=== PATIENT | female | born 1985 | race Caucasian/White ===

== ENCOUNTER 2017-07-02 18:14 | Emergency (ER) | payer MEDICAID, OTHER ==
[2017-07-02 19:18] VITALS: BP 122/73
[2017-07-02] MEDS ORDERED: NS 0.9% 1000 ML* 2,000 ML IV ONE (19:25)
--- NOTE | 2017-07-02 19:57 | RAD ---
INDICATION: Syncope COMPARISON: None TECHNIQUE: An AP portable view obtained at 1947 hours is submitted. FINDINGS: Bones/Soft Tissues: There are no acute bony findings. Cardiomediastinal: The cardiomediastinal silhouette is normal. Lungs: There are no infiltrates. Pleura: There are no pleural effusions. Other: None IMPRESSION: NO ACTIVE DISEASE.
[2017-07-02 20:06] LABS: Hematocrit 41 % (35-47); Hemoglobin 13.7 g/dl (12.0-16.0); Mean Corpuscular HGB Conc 33 g/dl (31-36); Mean Corpuscular Hemoglobin 30 pg (27-31); Mean Corpuscular Volume 91 fL (80-97); Mean Platelet Volume 7 um3 (7.4-10.4); Red Blood Count 4.53 10^6/ul (4.0-5.4); Red Cell Distribution Width 14 % (10.5-15); White Blood Count 11.8 10^3/ul (3.5-10.8)
--- NOTE | 2017-07-02 20:15 | RAD ---
INDICATION: Syncope COMPARISON: None TECHNIQUE: Noncontrast axial source images were acquired from the skull base to the vertex. FINDINGS: Ventricles/sulci: The ventricles and cisterns are normal in size and configuration for age. Brain parenchyma: There is no focal parenchymal finding, evidence of intracranial mass, or intracranial mass effect. Intracranial hemorrhage:None. Extra-axial spaces: There are no abnormal extra axial fluid collections or evidence of extra-axial mass. Calvarium: There is no calvarial fracture or other calvarial abnormality. Scalp: There is no evidence of scalp or extracalvarial soft tissue abnormality. Paranasal sinuses/mastoid: The paranasal sinuses and mastoid air cells are clear. Other: None. IMPRESSION: No acute intracranial findings
[2017-07-02 20:18] LABS: ALT 21 U/L (7-52); AST 13 U/L (13-39); Albumin 4.2 g/dL (3.2-5.2); Alkaline Phosphatase 60 U/L (34-104); Anion Gap 6 mmol/L (2-11); BUN/Creatinine Ratio 14.9 (8-20); Blood Urea Nitrogen 11 mg/dL (6-24); C Reactive Protein 10.86 mg/L (< 5.00); CO2 Carbon Dioxide 24 mmol/L (22-32); Calcium 9.4 mg/dL (8.6-10.3); Chloride 108 mmol/L (101-111); Creatine Kinase 42 U/L (10-223); Globulin 3.3 g/dL (2-4); Glucose 83 mg/dL (70-100); Lipase 36 U/L (11.0-82.0); Potassium 3.8 mmol/L (3.5-5.0); Sodium 138 mmol/L (133-145); Total Protein 7.5 g/dL (6.4-8.9)
[2017-07-02 20:36] LABS: TSH (Thyroid Stimulating Horm) 2.39 mcIU/mL (0.34-5.60)
--- NOTE | 2017-07-03 00:38 | ED ---
Steve Rodriguez Nikita, scribed for Isaac North MD on 07/02/17 at 1934 . Syncope/Near Syncope - HPI Summary HPI Summary: This patient is a 31 year old F presenting to ED with a chief complaint of syncope since 1630. Pt had episode after playing with her kids outside. Pt reports feeling dizzy, so she went inside the house where she remembers falling , hitting the wall, and then losing consciousness. The patient rates the pain 0/ 10 in severity. Symptoms aggravated by nothing. Symptoms alleviated by nothing. Patient reports LOC, dizziness/light-headed (spotty vision), nausea, fever, fatigue and increased sleeping (per the sister). Patient denies palpitations, CP , SOB, overexertion, PALAFOX, and chills. Pt has a Hx of brain tumors (only 1 in the past). She currently has one (found 1 year ago). Pt reports her tumor had ruptured a while ago and since then she hasnt had any syncopal episodes. Then, 1 month ago, the pt was in the bathroom where she lost consciousness. Pt is worried that this syncopal episode is related to her brain tumor. Pts oncologist is Dr. Caceres. - History Of Current Complaint Chief Complaint: EDSyncope Time Seen by Provider: 07/02/17 19:09 Hx Obtained From: Patient Onset/Duration: Sudden Onset, Lasting Hours - approximately 3 hours ago, Resolved Timing: Frequency Of Episodes - had previous episode about 1 month ago Context: Loss Of Consciousness Activity At Onset: Exertion - playing with kids (exertion is not unusual) Aggravating Factor(s): Nothing Alleviating Factor(s): Nothing Associated Signs And Symptoms: Other - Patient reports LOC, dizziness/light- headed (spotty vision), nausea, fever, fatigue and increased sleeping (per the sister). Patient denies palpitations, CP, SOB, overexertion, PALAFOX, and chills. 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 Negative: Chills Negative: Palpitations, Chest Pain Negative: Shortness Of Breath Positive: Nausea Neurological: Other - dizziness/light-headed ("spotty vision"), increased sleeping (per the sister) Positive: Syncope. Negative: Headache All Other Systems Reviewed And Are Negative: Yes Physical Exam - Summary Physical Exam Summary: General: well-appearing, no pain distress Skin: warm, color reflects adequate perfusion, dry Head: normal Eyes: EOMI, VARSHA ENT: normal Neck: supple, nontender Respiratory: CTA, breath sounds present Cardiovascular: RRR Abdomen: soft, nontender Bowel: present Musculoskeletal: normal, strength/ROM intact Neurological: normal, sensory/motor intact, A&O x3 Psychological: affect/mood appropriate GCS: 15 Triage Information Reviewed: Yes Vital Signs On Initial Exam: Initial Vitals Temp Pulse Resp BP Pulse Ox 97.5 F 94 20 133/75 100 07/02/17 18:29 07/02/17 18:29 07/02/17 18:29 07/02/17 18:29 07/02/17 18:29 Vital Signs Reviewed: Yes - Tyrese Coma Scale Coma Scale Total: 15 Diagnostics - Vital Signs Vital Signs Temp Pulse Resp BP Pulse Ox 07/02/17 19:10 99.0 F 123 18 122/73 100 07/02/17 18:29 97.5 F 94 20 133/75 100 - Laboratory Lab Results: Lab Results 07/02/17 07/02/17 07/02/17 Range/Units 19:53 19:53 19:53 WBC 11.8 H (3.5-10.8) 10^3/ul RBC 4.53 (4.0-5.4) 10^6/ul Hgb 13.7 (12.0-16.0) g/dl Hct 41 (35-47) % MCV 91 (80-97) fL MCH 30 (27-31) pg MCHC 33 (31-36) g/dl RDW 14 (10.5-15) % Plt Count 336 (150-450) 10^3/ul MPV 7 L (7.4-10.4) um3 Neut % (Auto) 63.6 (38-83) % Lymph % (Auto) 26.6 (25-47) % [place] % (Auto) 7.6 (1-9) % Eos % (Auto) 1.2 (0-6) % Baso % (Auto) 1.0 (0-2) % Absolute Neuts (auto) 7.5 (1.5-7.7) 10^3/ul Absolute Lymphs (auto) 3.1 (1.0-4.8) 10^3/ul Absolute Monos (auto) 0.9 H (0-0.8) 10^3/ul Absolute Eos (auto) 0.1 (0-0.6) 10^3/ul Absolute Basos (auto) 0.1 (0-0.2) 10^3/ul Absolute Nucleated RBC 0 10^3/ul Nucleated RBC % 0 INR (Anticoag Therapy) 0.86 L (0.89-1.11) APTT 30.5 (26.0-36.3) seconds Sodium 138 (133-145) mmol/L Potassium 3.8 (3.5-5.0) mmol/L Chloride 108 (101-111) mmol/L Carbon Dioxide 24 (22-32) mmol/L Anion Gap 6 (2-11) mmol/L BUN 11 (6-24) mg/dL Creatinine 0.74 (0.51-0.95) mg/dL Est GFR ( Amer) 117.0 (>60) Est GFR (Non-Af Amer) 91.0 (>60) BUN/Creatinine Ratio 14.9 (8-20) Glucose 83 (70-100) mg/dL Lactic Acid (0.5-2.0) mmol/L Calcium 9.4 (8.6-10.3) mg/dL Magnesium 2.0 (1.9-2.7) mg/dL Total Bilirubin 0.30 (0.2-1.0) mg/dL AST 13 (13-39) U/L ALT 21 (7-52) U/L Alkaline Phosphatase 60 (34-104) U/L Total Creatine Kinase 42 (10-223) U/L CK-MB (CK-2) 0.8 (0.6-6.3) ng/mL Troponin I 0.00 (<0.04) ng/mL C-Reactive Protein 10.86 H (< 5.00) mg/L Total Protein 7.5 (6.4-8.9) g/dL Albumin 4.2 (3.2-5.2) g/dL Globulin 3.3 (2-4) g/dL Albumin/Globulin Ratio 1.3 (1-3) Lipase 36 (11.0-82.0) U/L TSH 2.39 (0.34-5.60) mcIU/mL Beta HCG, Quant < 0.60 mIU/mL 07/02/17 Range/Units 19:53 WBC (3.5-10.8) 10^3/ul RBC (4.0-5.4) 10^6/ul Hgb (12.0-16.0) g/dl Hct (35-47) % MCV (80-97) fL MCH (27-31) pg MCHC (31-36) g/dl RDW (10.5-15) % Plt Count (150-450) 10^3/ul MPV (7.4-10.4) um3 Neut % (Auto) (38-83) % Lymph % (Auto) (25-47) % [place] % (Auto) (1-9) % Eos % (Auto) (0-6) % Baso % (Auto) (0-2) % Absolute Neuts (auto) (1.5-7.7) 10^3/ul Absolute Lymphs (auto) (1.0-4.8) 10^3/ul Absolute Monos (auto) (0-0.8) 10^3/ul Absolute Eos (auto) (0-0.6) 10^3/ul Absolute Basos (auto) (0-0.2) 10^3/ul Absolute Nucleated RBC 10^3/ul Nucleated RBC % INR (Anticoag Therapy) (0.89-1.11) APTT (26.0-36.3) seconds Sodium (133-145) mmol/L Potassium (3.5-5.0) mmol/L Chloride (101-111) mmol/L Carbon Dioxide (22-32) mmol/L Anion Gap (2-11) mmol/L BUN (6-24) mg/dL Creatinine (0.51-0.95) mg/dL Est GFR ( Amer) (>60) Est GFR (Non-Af Amer) (>60) BUN/Creatinine Ratio (8-20) Glucose (70-100) mg/dL Lactic Acid 1.1 (0.5-2.0) mmol/L Calcium (8.6-10.3) mg/dL Magnesium (1.9-2.7) mg/dL Total Bilirubin (0.2-1.0) mg/dL AST (13-39) U/L ALT (7-52) U/L Alkaline Phosphatase (34-104) U/L Total Creatine Kinase (10-223) U/L CK-MB (CK-2) (0.6-6.3) ng/mL Troponin I (<0.04) ng/mL C-Reactive Protein (< 5.00) mg/L Total Protein (6.4-8.9) g/dL Albumin (3.2-5.2) g/dL Globulin (2-4) g/dL Albumin/Globulin Ratio (1-3) Lipase (11.0-82.0) U/L TSH (0.34-5.60) mcIU/mL Beta HCG, Quant mIU/mL Result Diagrams: 07/02/17 19:53 07/02/17 19:53 Lab Statement: Any lab studies that have been ordered have been reviewed, and results considered in the medical decision making process. - Radiology CXR Radiology Interpretation Completed By: Radiologist - No active disease. ED physician has reviewed this radiology report and agrees. - CT Brain CT Interpretation Completed By: Radiologist - No acute intracranial findings. ED physician has reviewed this radiology report and agrees. - EKG 1842 Cardiac Rate: NL - 94 bpm EKG Rhythm: Sinus Rhythm ST Segment: Normal EKG Interpretation: No activity Re-Evaluation - Re-Evaluation First Eval Re-Evaluation Time: 20:51 Comment: Discussed with pt CXR and CT Brain findings. Course/Dx Course Of Treatment: DISCUSSED RESULTS WITH PATIENT/FAMILY. PATIENT FEELS WELL IN ED. WILL F/U PMD. Assessment/Plan: This patient is a 31 year old F presenting to ED with a chief complaint of syncope since 1630. Pt had episode after playing with her kids outside. Pt reports feeling dizzy, so she went inside the house where she remembers falling, hitting the wall, and then losing consciousness. The patient rates the pain 0/10 in severity. Symptoms aggravated by nothing. Symptoms alleviated by nothing. Patient reports LOC, dizziness/light-headed (spotty vision), nausea, fever, fatigue and increased sleeping (per the sister). Patient denies palpitations, CP, SOB, overexertion, PALAFOX, and chills. Pt has a Hx of brain tumors (only 1 in the past). She currently has one (found 1 year ago). Pt reports her tumor had ruptured a while ago and since then she hasnt had any syncopal episodes. Then, 1 month ago, the pt was in the bathroom where she lost consciousness. CT brain reveals no acute intracranial findings. GCS is 15. CXR reveals no acute disease. ED physician has reviewed these radiology reports and agrees. EKG reveals NSR, normal ST, and no activity. In the ED course, pt was given fluids. Pt will be discharged with instructions to follow up with her PCP. Pt is agreeable with this plan. Medications reviewed. - Diagnoses Provider Diagnoses: Syncope Discharge - Discharge Plan Condition: Stable Disposition: HOME Patient Education Materials: Syncope (ED) Referrals: John Nelson MD [Primary Care Provider] - Additional Instructions: FOLLOW UP WITH YOUR DOCTOR. RETURN TO THE EMERGENCY DEPARTMENT FOR ANY WORSENING OF YOUR CONDITION; WEAKNESS , YOU FEEL LIKE PASSING OUT, YOU FEEL ILL, CHEST PAIN OR QUESTIONS OR CONCERNS. The documentation as recorded by the Steve carver Nikita accurately reflects the service I personally performed and the decisions made by me, Isaac North MD.
== END 2017-07-02 21:05 | disposition home or self-care (01) ==
LOC: ED 18:14
DX: R55 Syncope and collapse (principal); R42 Dizziness and giddiness; R50.9 Fever, unspecified; R53.83 Other fatigue
CPT/HCPCS: 36415; 70450; 71010; 80053; 82550; 82553; 83605; 83690; 83735; 84443; 84484; 84702; 85025; 85610; 85730; 86140; 93005; 96360; 99283

== ENCOUNTER 2018-09-24 10:43 | Emergency (ER) | payer OTHER ==
--- NOTE | 2018-09-24 10:58 | ED ---
Adult Trauma - HPI Summary HPI Summary: This pt is a 33 y/o female presenting to [facility] via EMS for an unwitnessed fall today s/p slipping. Per EMS pt left her house at around 08:30 and had walked a couple hundred feet from her house when she fell. Pt did have LOC and head strike. Pt did not call 911 until she regained consciousness on the side of the road a little before 10:00. Pt currently c/o headache, lower back pain, and neck pain. Additionally she states her feet are cold and has numbness and tingling, blurry vision (which is no usual), nausea. Denies abd pain, chest pain , SOB, diplopia, vomiting. LMP: 3 weeks ago. Pt denies risk for as she has a tuba ligation. PMHx includes brain tumor (shrunk with meds 3 years ago in [place]), ovarian cyst. Her last brain CT was about 1 year ago when she also fell and had LOC. - History of Current Complaint Stated Complaint: FALL Time Seen by Provider: 09/24/18 10:45 Hx Obtained From: Patient Mechanism of Injury: Fall Loss of Consciousness: prolonged (minutes) Restraints: None Onset/Duration: Started Hours Ago Onset of Pain: Hours Current Severity: Moderate Pain Scale Used: 0-10 Numeric Location: Head, Neck, Back - lower Character: Aching Aggravating Factor(s): Nothing Alleviating Factor(s): Nothing Associated Signs & Symptoms: Positive: Nausea/Vomiting - POS: nausea. NEG: vomiting, Loss of Consciousness, Numbness/Weakness - numbness and tingling in LE from cold, Other: - POS: blurry vision. NEG: diplopia, vomiting. 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 Negative: Diplopia Negative: Chest Pain Negative: Shortness Of Breath Positive: Nausea. Negative: Abdominal Pain, Vomiting Musculoskeletal: Other - POS: lower back pain, neck pain Positive: Headache, Paresthesia - in LE, Numbness - in LE All Other Systems Reviewed And Are Negative: Yes Physical Exam - Summary Physical Exam Summary: VITAL SIGNS: Reviewed. GENERAL: Patient is a well-developed and nourished female who is lying comfortable in the stretcher. Patient is not in any acute respiratory distress. HEAD AND FACE: No signs of trauma. No ecchymosis, hematomas or skull depressions. No sinus tenderness. EYES: PERRLA, EOMI x 2, No injected conjunctiva, no nystagmus. EARS: Hearing grossly intact. Ear canals and tympanic membranes are within normal limits. MOUTH: Oropharynx within normal limits. NECK: Supple, trachea is midline, no adenopathy, no JVD, no carotid bruit. C- spine tenderness. Pt with C-collar. CHEST: Symmetric, no tenderness at palpation LUNGS: Clear to auscultation bilaterally. No wheezing or crackles. CVS: Regular rate and rhythm, S1 and S2 present, no murmurs or gallops appreciated. ABDOMEN: Soft, non-tender. No signs of distention. No rebound, no guarding, and no masses palpated. Bowel sounds are normal. MSK: FROM in all major joints, no edema, no cyanosis or clubbing. Paraspinal muscle tenderness in the lumbar spine. NEURO: Alert and oriented x 3. No acute neurological deficits. Speech is normal and follows commands. SKIN: Dry and warm GCS: 15 Triage Information Reviewed: Yes Vital Signs On Initial Exam: Initial Vitals Temp Pulse Resp BP Pulse Ox 99 F 98 20 138/74 97 09/24/18 10:51 09/24/18 10:51 09/24/18 10:51 09/24/18 10:51 09/24/18 10:51 Vital Signs Reviewed: Yes Diagnostics - Laboratory Result Diagrams: 09/24/18 11:06 09/24/18 11:06 Lab Statement: Any lab studies that have been ordered have been reviewed, and results considered in the medical decision making process. - CT Brain CT CT Interpretation Completed By: Radiologist Summary of CT Findings: IMPRESSION: No intracranial mass or hemorrhage is noted. Dr. Roldan has reviewed this report. cervical spine CT CT Interpretation Completed By: Radiologist Summary of CT Findings: IMPRESSION: No CT evidence for traumatic cervical spine injury. Dr. Roldan has reviewed this report. lumbar spine CT CT Interpretation Completed By: Radiologist Summary of CT Findings: IMPRESSION: No fracture of the lumbar spine is noted. Several levels of degenerative disc disease is noted with minimal broad-based protrusions. Dr. Roldan has reviewed this report. - EKG 11:00 Cardiac Rate: NL - at 90 bpm EKG Rhythm: Sinus Rhythm EKG Comparison: No Significant Change - compared to prior EKG on 07/02/17. Summary of EKG Findings: No ST elevations. Adult Trauma Course/Dx - Course Assessment/Plan: This pt is a 33 y/o female presenting to [facility] via EMS for an unwitnessed fall today s/p slipping. Per EMS pt left her house at around 08:30 and had walked a couple hundred feet from her house when she fell. Pt did have LOC and head strike. Pt did not call 911 until she regained consciousness on the side of the road a little before 10:00. Pt currently c/o headache, lower back pain, and neck pain. Additionally she states her feet are cold and has numbness and tingling, blurry vision (which is no usual), nausea. Denies abd pain, chest pain, SOB, diplopia, vomiting. LMP: 3 weeks ago. Pt denies risk for as she has a tubal ligation. PMHx includes brain tumor (shrunk with meds 3 years ago in [place]), ovarian cyst. Her last brain CT was about 1 year ago when she also fell and had LOC. Blood work without any significant abnormality except for glucose of 106, test is negative, and alcohol is less than 10. Lumbar Spine CT IMPRESSION: No fracture of the lumbar spine is noted. Several levels of degenerative disc disease is noted with minimal broad-based protrusions. Cervical spine CT IMPRESSION: #. No CT evidence for traumatic cervical spine injury. Head CT IMPRESSION: No intracranial mass or hemorrhage is noted. The patient was given Toradol and Norflex for the pain. And at this point the patient will be discharged home with follow-up with primary care physician. I discussed all the findings and test results with the patient. Patient was instructed to return to the emergency room immediately if any of the symptoms return or worsens. Plan of care was discussed with the patient and understands and agrees. All questions were answered at patient satisfaction. There were no further complaints or concerns. Lung exam before discharge: CTA B/L. Good air exchange. No wheezing or crackles heard. CVS: S1 and S2 present. No murmurs appreciated. Patient is alert and oriented x 3. Patient is hemodynamically stable. Patient will be discharged home with follow up PCP in the next 2-3 days. - Diagnoses Provider Diagnoses: Accidental fall, Head contusion, Back pain Discharge - Sign-Out/Discharge Documenting (check all that apply): Patient Departure - Discharge home - Discharge Plan Condition: Stable Disposition: HOME Prescriptions: Cyclobenzaprine TAB* [Flexeril 10 MG TAB*] 10 mg PO TID PRN #12 tab PRN Reason: Pain Ibuprofen TAB* [Motrin TAB* 600 MG] 600 mg PO Q8H PRN #20 tab PRN Reason: Pain Patient Education Materials: Contusion in Adults (ED), Back Pain (ED), Fall Prevention (ED) Referrals: John Nelson MD [Medical Doctor] - Additional Instructions: FOLLOW UP WITH YOUR PRIMARY CARE PROVIDER WITHIN ONE WEEK FOR HIGH BLOOD PRESSURE NOTED TODAY. RETURN TO THE ED FOR ANY NEW OR WORSENING SYMPTOMS. - Billing Disposition and Condition Condition: STABLE Disposition: Home - Attestation Statements Document Initiated by Jerry: Yes Documenting Scribe: Flor Soto Provider For Whom Jerry is Documenting (Include Credential): Db Roldan MD Scribe Attestation: Flor Rodriguez, scribed for Db Roldan MD on 09/24/18 at 1835. Scribe Documentation Reviewed: Yes Provider Attestation: The documentation as recorded by the Flor carver accurately reflects the service I personally performed and the decisions made by me, Db Roldan MD Status of Scribe Document: Viewed
[2018-09-24 11:12] LABS: ABS Basophils 0.1 10^3/ul (0-0.2); ABS Eosinophils 0.3 10^3/ul (0-0.6); ABS Lymphocytes 1.8 10^3/ul (1.0-4.8); ABS Monocytes 0.7 10^3/ul (0-0.8); ABS Neutrophils 7.9 10^3/ul (1.5-7.7); ABS Nucleated RBC 0 10^3/ul; Eosinophil % 2.4 %; Hematocrit 42 % (35-47); Mean Corpuscular HGB Conc 34 g/dl (31-36); Mean Corpuscular Hemoglobin 30 pg (27-31); Mean Corpuscular Volume 89 fL (80-97); Mean Platelet Volume 7.2 fL (7.4-10.4); Nucleated Red Blood Cells % 0; Platelet Count 344 10^3/ul (150-450); Red Blood Count 4.68 10^6/ul (4.00-5.40); Red Cell Distribution Width 14 % (10.5-15); White Blood Count 10.8 10^3/ul (3.5-10.8)
[2018-09-24 11:29] LABS: EGFR Non-African American 87.1 (>60)
[2018-09-24] MEDS ORDERED: Ketorolac INJ* 60 MG/2 ML VIAL IM ONE (12:06)
[2018-09-24] MEDS ORDERED: Cyclobenzaprine TAB* 10 MG PO ONE (12:06)
[2018-09-24 12:31] VITALS: BP 100/73
== END 2018-09-24 12:25 | disposition home or self-care (01) ==
LOC: ED 10:43
DX: S00.93XA Contusion of unspecified part of head, initial encounter (principal); M54.9 Dorsalgia, unspecified; R11.2 Nausea with vomiting, unspecified; H53.8 Other visual disturbances; R51 Headache; W01.0XXA Fall on same level from slipping, tripping and stumbling without subsequent striking against object, initial encounter; Y92.9 Unspecified place or not applicable
CPT/HCPCS: 36415; 70450; 72125; 72131; 80053; 80320; 82550; 84702; 85025; 93005; 96372; 99282; A9270-GY; G0480; J1885

== ENCOUNTER 2020-09-28 00:45 | Observation (INO) ==
[2020-09-28] MEDS ORDERED: NS 0.9% 1000 ml BAG 1,000 ML IV ONE (00:54)
[2020-09-28] MEDS ORDERED: Ondansetron 4 mg VIAL 2 MG/ML 2 ml VIAL IV ONE (00:54)
[2020-09-28] MEDS ORDERED: Pantoprazole VIAL 40 MG VIAL IV ONE (00:54)
[2020-09-28 01:54] LABS: ABS Basophils 0.1 10^3/ul (0-0.2); ABS Eosinophils 0.1 10^3/ul (0-0.6); ABS Lymphocytes 2.3 10^3/ul (1.0-4.8); ABS Monocytes 1.3 10^3/ul (0-0.8); ABS Neutrophils 12.5 10^3/ul (1.5-7.7); Eosinophil % 0.7 %; Hematocrit 37 % (35-47); Hemoglobin 12.7 g/dL (12.0-16.0); Lymphocyte % 14.2 %; Mean Corpuscular HGB Conc 34 g/dL (31-36); Mean Corpuscular Hemoglobin 30 pg (27-31); Mean Corpuscular Volume 87 fL (80-97); Mean Platelet Volume 7.8 fL (7.4-10.4); Platelet Count 369 10^3/uL (150-450); Red Blood Count 4.29 10^6 /uL (3.70-4.87); Red Cell Distribution Width 15 % (10-15); White Blood Count 16.3 10^3/uL (3.5-10.8)
[2020-09-28 02:01] LABS: INR 1.13 (0.82-1.09)
[2020-09-28 02:11] LABS: Albumin 3.6 g/dL (3.2-5.2); Albumin/Globulin Ratio 1.1 (1-3); BUN/Creatinine Ratio 8.3 (8-20); C Reactive Protein 18.61 mg/L (<8.01); Calcium 8.3 mg/dL (8.6-10.3); EGFR African American 136.9 (>60); EGFR Non-African American 113.1 (>60); Globulin 3.2 g/dL (2-4); Potassium 3.4 mmol/L (3.5-5.0); Total Bilirubin 0.5 mg/dL (0.2-1.0); Total Protein 6.8 g/dL (6.4-8.9)
[2020-09-28] MEDS ORDERED: Iohexol 300 (CONTRAST) 10 ML SDV IV ONE (02:17)
[2020-09-28 04:25] LABS: Urine Appearance Clear; Urine Bilirubin Negative (Negative); Urine Blood 3+ (Negative); Urine Color Yellow; Urine Glucose Negative (Negative); Urine Ketones Trace (Negative); Urine Nitrite Negative (Negative); Urine Protein Negative (Negative); Urine Specific Gravity 1.047 (1.010-1.030); Urine Urobilinogen Negative (Negative)
[2020-09-28 04:35] LABS: Urine Bacteria Absent (Absent); Urine Red Blood Cell 1+(3-5/hpf) (Absent); Urine Squamous Epithelial Cell Present (Absent); Urine White Blood Cell Trace(0-5/hpf) (Absent)
[2020-09-28] MEDS ORDERED: Piperacillin/Tazobac ADVAN 3.375 GM in NS 0.9% 100 ml BAG 100 ML IV ONE (04:54)
[2020-09-28] MEDS ORDERED: Ondansetron 4 mg VIAL 2 MG/ML 2 ml VIAL IV PRN (04:54)
[2020-09-28] MEDS ORDERED: NS 0.9% 1000 ml BAG 1,000 ML IV SCH ×2 (05:00→07:02)
[2020-09-28] MEDS ORDERED: Zosyn per Pharmacy NOTE FOLLOW UP SCH (05:00)
[2020-09-28 06:18] LABS: ABS Basophils 0.1 10^3/ul (0-0.2); ABS Eosinophils 0.2 10^3/ul (0-0.6); ABS Monocytes 1.1 10^3/ul (0-0.8); ABS Neutrophils 10.6 10^3/ul (1.5-7.7); Eosinophil % 1.1 %; Hematocrit 36 % (35-47); Lymphocyte % 19.8 %; Mean Corpuscular HGB Conc 34 g/dL (31-36); Mean Corpuscular Hemoglobin 30 pg (27-31); Mean Corpuscular Volume 88 fL (80-97); Mean Platelet Volume 7.8 fL (7.4-10.4); Platelet Count 323 10^3/uL (150-450); Red Blood Count 4.07 10^6 /uL (3.70-4.87); Red Cell Distribution Width 15 % (10-15); White Blood Count 14.9 10^3/uL (3.5-10.8)
[2020-09-28 06:50] LABS: Albumin 3.3 g/dL (3.2-5.2); Albumin/Globulin Ratio 1.3 (1-3); BUN/Creatinine Ratio 6.5 (8-20); Calcium 7.8 mg/dL (8.6-10.3); EGFR African American 131.8 (>60); EGFR Non-African American 108.9 (>60); Globulin 2.6 g/dL (2-4); Potassium 3.8 mmol/L (3.5-5.0); Total Bilirubin 0.6 mg/dL (0.2-1.0); Total Protein 5.9 g/dL (6.4-8.9)
[2020-09-28] MEDS: Morphine 2 MG/ML SYRINGE IV PRN ×2 (06:50→13:19)
[2020-09-28] MEDS ORDERED: Buffered Lidocaine 1% SYRIN 1 ml INTRADERM ONE (08:33)
[2020-09-28] MEDS ORDERED: diPHENhydraMINE IV 50 MG/ML 1 ml VIAL (BENADRYL) IV PRN (08:36)
[2020-09-28] MEDS ORDERED: Naloxone 0.4 mg VIAL 0.4 mg/ml 1 ml VIAL IV PRN (08:36)
[2020-09-28] MEDS ORDERED: Prochlorperazine 5 mg/ml 2 ml VIAL (10 mg) IV PRN (08:36)
[2020-09-28] MEDS ORDERED: HYDROmorphone 1 MG/1 ML SYRINGE IV PRN (08:36)
[2020-09-28] MEDS ORDERED: fentaNYL 250 mcg/5 ml 50 MCG/ML 5 ml VIAL (250 MCG) ONE (08:37)
[2020-09-28] MEDS ORDERED: Propofol 10 MG/ML 20 ML BTL ONE (08:37)
[2020-09-28] MEDS ORDERED: Midazolam 2 mg/2 ml VIAL 1 mg/ml 2 ml VIAL (2 mg) ONE (08:38)
[2020-09-28] MEDS ORDERED: Rocuronium 50 mg VIAL 10 mg/ml 5 ml VIAL (50 mg) ONE (08:38)
[2020-09-28] MEDS ORDERED: ZOSYN 3.375 GM Q8H per EXTENDED INFUSION IV SCH (09:00)
[2020-09-28] MEDS ORDERED: Lactated Ringers 1000 ml BAG 1,000 ML IV SCH (09:00)
[2020-09-28] MEDS ORDERED: Bupivacaine 0.25% SDV PF 10 ML VIAL INJ ONE (09:55)
[2020-09-28] MEDS ORDERED: Dexamethasone IV 4 MG/ML VIAL 1 ml VIAL ONE (10:29)
[2020-09-28] MEDS ORDERED: Ondansetron 4 mg VIAL 2 MG/ML 2 ml VIAL ONE (10:29)
[2020-09-28] MEDS ORDERED: HYDROmorphone 1 MG/1 ML SYRINGE ONE (11:15)
[2020-09-28 15:35] VITALS: BP 147/80
[2020-09-28] MEDS ORDERED: Influenza VAC *QUAD* 2020-21* 0.5 ML SYRINGE IM ONE (16:56)
[2020-09-29] MEDS ORDERED: Influenza VAC *QUAD* 2020-21* 0.5 ML SYRINGE IM ONE (09:00)
[2020-10-01] MEDS ORDERED: Scopolamine PATCH Remove NOTE PATCH OFF ONE (10:00)
== END 2020-09-28 18:00 | disposition home or self-care (01) ==
LOC: SSU 00:45 → ED 00:45 → SSU 06:08
PROVIDERS: ADMIT Internal Medicine; ATTEND Surgery